=== PATIENT | female | born 1965 | race Caucasian/White ===

== ENCOUNTER 2025-01-19 08:13 | Outpatient (REF) | payer OTHER, SELFPAY ==
--- OUTSIDE RECORDS SUMMARY | 2025-01-19 09:10 | XMS_ITS | Encounter Summary ---
Author Organization [facility] Address [address] [facility] [address] [place] [address] Phone Care Team Providers Care Analytic Programmer Name Role Phone Dinorah Moses AUTOMAT CAR ATTENDANT Primary Care Prov ider Encounter Details Date Type Department Care Team (Late st Contact Info) Description 01/16/2024 Ancillary Orders [facility], Emergency - [facility] [address] [place] [address] Dinorah Moses, DARRIN [address] [place] [address] Pain (Primary Dx) Social History Tobacco Use Types Packs/Day Years Used Date Smoking Tobacco: Never Smokeless Tobacco: Never Alcohol Use Standard Drinks/Week Comments Yes 0 (1 standard drink = 0.6 oz pur e alcohol) 4-6 drinks a month Education Answer Date Recorded Are you interested in more education? Not on layla e 08/30/2022 Are you concerned about learning? Not on file 08/30/2022 No 08/30/2022 No 08/30/2022 Digital Access Answer Date Recorded No 09/25/2022 No 09/25/2022 Reliable internet access at home? Not on file 09/25/2022 Device with a working camera? Not on file Intimate Partner Violence Answer Date R ecorded Are you denied basic needs s uch as food, clothing, or medical care? No 09/02/2022 In the past 12 months have y ou been in a relationship with a person who hurts, threatens, or tries to control you? No 09/02/2022 Are you denied basic needs s uch as food, clothing, or medical care? No 09/02/2022 In the past 12 months have y ou been in a relationship with a person who hurts, threatens, or tries to control you? No 09/02/2022 Comments No Sex and Gender Information Value Date Recorded Sex Assigned at Female 01/26/2024 8:55 AM EDT Legal Sex Female 10:22 AM EDT Gender Identity Female 01/26/2024 8:55 AM EDT Sexual Orientation Not on file documented as of this encounter Plan of Treatment Scheduled Orders Name Type Priority Associated Diagnoses Orde r Schedule XR Foot (Right) Imaging Routine Pain 1 Occurrences starting 01/16/2024 until 04/16/2024 documented as of this encounter Visit Diagnoses Diagnosis Pain- Primary Generalized pain documented in this encounter Care Teams Analytic Programmer Relationship Specialty Start Date End Date Dinorah Moses CNP [address] [place] [address] PCP - General Nurse Practitioner 01/16/24 documented as of this encounter Additional Source Comments The information contained in this document represents components of the legal health record. It is not the complete legal health record.[facility]
--- OUTSIDE RECORDS SUMMARY | 2025-01-19 09:10 | XMS_ITS | Clinical Summary ---
Author Organization [facility] Address [address] [facility] [address] [place] [address] Phone Care Team Providers Care Fire Sprinkler Fitter Name Role Phone Dinorah Moses [facility] Primary Care Prov ider Allergies Active Allergy Reactions Criticality Noted Date Comments Amoxicillin Unknown Low 01/17/2022 Erythromycin Other (See Comments) Low 04/19/2022 Made her pink eye worse Medications Medication-Free Text Feel Good - topical cream, magnesium, arnica, etc Active cholecalciferol (VITAMIN D3) 25 MCG (1,000 unit) tablet Take 2 tablets by mouth. Active buPROPion (WELLBUTRIN XL) 150 MG ER 24 hr tablet TAKE 1 TABLET BY MOUTH IN THE MORNING FOR 7 DAYS, THEN INCREASE TO 2 TABLETS DAILY 3 Active multivitamin-Ca -iron-minerals Tab Take 1 tablet by mouth every morning. Active magnesium oxide 500 mg Tab Take 1 tablet by mouth every morning. Active calcium glucarate-diind olylmet 250-100 mg Cap Take by mouth. Activ e acetaminophen (TYLENOL) 325 mg tablet Take 3 tablets (975 mg total) by mouth every 8 (eight) hours. 0 3 Active aspirin 81 MG EC tablet Take 1 tablet (81 mg total) by mouth 2 (two) times a day for 30 doses. For 30 days following surgery. 30 tablet 3 Active magnesium gluconate (MAG-G) 500 mg (27 mg elemental) Tab Take 1 tablet by mouth. Active buPROPion (WELLBUTRIN XL) 150 MG ER 24 hr tablet Take 150 mg by mouth. Active Active Problems Problem Noted Date Diagnosed Date History of hip replacement, total, left 10/18/19 Aftercare following left hip joint replacement s urgery 09/02/2022 Posttraumatic stress disorder 01/17/2022 Resolved Problems Problem Noted Date Diagnosed Date Resolved Date Primary osteoarthritis of left hip 01/17/2022 10/17/2022 Social History Tobacco Use Types Packs/Day Years [...] AM EDT Sexual Orientation Not on file Last Filed Vital Signs Vital Sign Reading Time Taken Comments Blood Pressure 114/75 09/04/2022 12:35 AM EDT Pulse 82 09/04/2022 12:35 AM EDT Temperature 36.9 C (98.4 F) 09/04/2022 12:35 AM EDT Respiratory Rate 18 09/04/2022 12:35 AM EDT Oxygen Saturation 97% 09/04/2022 12:35 AM EDT Inhaled Oxygen Concentration - - Weight 84.4 kg (186 lb) 09/02/2022 12:00 PM EDT Height 162.6 cm (5' 4 ) 09/02/2022 12:00 PM EDT Body Mass Index 31.93 09/02/2022 12:00 PM EDT Plan of Treatment Health Maintenance Due Date Last Done Comments DEPRESSION SCREENING 1978 HEPATITIS C SCREENING 1984 HIV ONE-TIME SCREENING (18-65 YEARS) 1984 PAP SMEAR 11/07/1987 COLOGUARD 11/07/2011 COLONOSCOPY 11/07/2011 COLORECTAL CANCER SCREENING 11/07/2011 FIT TEST 11/07/2011 FOBT 11/07/2011 SIGMOIDOSCOPY 11/07/2011 VIRTUAL COLONOSCOPY 11/07/2011 PNEUMOCOCCAL VACCINES (50+ years) (1 of 1 - PCV) 2016 ZOSTER VACCINES (1 of 2) 2016 INFLUENZA VACCINE (#1) 2024 COVID-19 VACCINE ( season) 2025 05/11/2022, 09/18/2020, 08/21/2020 SCREENING FOR DIABETES 09/03/2025 09/03/2022, 2022 MAMMOGRAM 06/24/2026 06/24/2024, 0507/2018, 07/02/2017, Additional history exists LIPID PANEL 01/05/2028 01/04/2023 Adult Td,Tdap Booster 07/28/2031 07/27/2021, 010 SMOKING STATUS SCREENING (Once After 26 Yrs) Completed 06/24/2024 HEPATITIS A VACCINES Aged Out No long er eligible based on patient's age to complete this topic HIB VACCINES Aged Out No longer eligi ble based on patient's age to complete this topic MENINGOCOCCAL VACCINES (ACWY) Aged Out No longer eligible based on patient's age to complete this topic MENINGOCOCCAL VACCINES (B) Aged Out N o longer eligible based on patient's age to complete this topic Medical Devices Implanted Type Area Internal Grinder Set Up Operator Device Identifier Shelf Expiration Date Model / Serial / Lot Hip 36mm 0 G7 [place] Type 1 Standard - [id number] Implanted:Qty: 1 on 09/02/2022 by Juanito Anand MD at [facility] STANDARD Left: Hip [employer] 02/08/2032 [id number] / / [id number] Acetabular Shell 52mm Size E G7 Porous Plasma [place] [employer] Hole - [id number] Implanted:Qty: 1 on 09/02/2022 by Juanito Anand MD at [facility] Left: Hip [employer] 05/21/2032 [id number] / / [id number] Screw Bone 6.5x30mm Hip Dome G7 Acetabular Low Profile - [id number] Implanted:Qty: 1 on 09/02/2022 by Juanito Anand MD at [facility] Left: Hip [employer] 02/27/2033 [id number] / / [id number] Screw Hip 6.5x20mm G7 Low Profile Dome 16a - [id number] Implanted:Qty: 1 on 09/02/2022 by Juanito Anand MD at [facility] Left: Hip [employer] 05/15/2031 [id number] / / [id number] Hip Liner 36mm E Acetabular Neutral G7 Longevity - [id number] Implanted:Qty: 1 on 09/02/2022 by Juanito Anand MD at [facility] Left: Hip [employer] 06/30/2027 [id number] / / [id number] Hip Stem [id number] 135deg Echo Bi Metric Revision Titanium Porous Reduced Proximalimal Profile Neck - [id number] Implanted:Qty: 1 on 09/02/2022 by Jaunito Anand MD at [facility] Left: Hip [employer] 04/04/2028 [id number] / / [id number] Procedures Procedure Name Priority Date/Time Associated Diagnosis Comments BI MAMMOGRAM SCREENING WITH TOMOSYNTHESIS WITH CAD (BILATERAL) Routine 06/24/2024 7:54 AM EST Breast screening from Last 3 Months or Most Recently Relevant to Health Maintenance Results * BI MAMMOGRAM SCREENING WITH TOMOSYNTHESIS WITH CAD (BILATERAL) (06/24/2024 7:54 AM EST) Anatomical Region Laterality Modality Breast Left, Breast Right, Breast Bilateral Bila teral Mammography 06/24/2024 4:14 PM EST Impressions 06/24/2024 4:17 PM EST No mammographic evidence of malignancy in either breast. Annual screening mammography is recommended. BI-RADS 1 NEGATIVE The patient will be notified of the results and recommendations. Narrative 06/24/2024 4:17 PM EST BI MAMMOGRAM SCREENING WITH TOMOSYNTHESIS WITH CAD (BILATERAL) Additional patient information: Screening. COMPARISON: Comparison is made to relevant outside prior imaging. Breast composition: There are scattered areas of fibroglandular density. FINDINGS: No abnormal masses, suspicious calcifications, or other significant findings are identified mammographically in either breast. Procedure Note Kaitlyn Jones MD - 06/24/2024 BI MAMMOGRAM SCREENING WITH TOMOSYNTHESIS WITH CAD (BILATERAL) Additional patient information: Screening. COMPARISON: Comparison is made to relevant outside prior imaging. Breast composition: There are scattered areas of fibroglandular density. FINDINGS: No abnormal masses, suspicious calcifications, or other significantfindings are identified mammographically in either breast. IMPRESSION: No mammographic evidence of malignancy in either breast. Annual screening mammography is recommended. BI-RADS 1 NEGATIVE The patient will be notified of the results and recommendations. Dinorah Moses [facility] IMG MG EXAMS Fi nal Result from Last 3 Months or Most Recently Relevant to Health Maintenance Insurance [address] [place], [place] [address]O [facility] [place] [address] [place], [place] [address] [place] [address] [place] [address] [place] [address] O [facility] Advance Directives For more information, please contact: [phone] (9AM - 5PM [facility], Friday-Friday) * Full Code (Latest Code Status on File) Date Activated Date Inactivated Comments 09/02/2022 7:39 PM Question Answer Comments Code Status Confirmed With: Patient * Full Code Date Activated Date Inactivated Comments 09/02/2022 11:47 AM 09/02/2022 7:39 PM Question Answer Comments Code Status Confirmed With: Patient Care Teams Fire Sprinkler Fitter Relationship Specialty Start Date End Date Dinorah Moses CNP [address] [place] [address] PCP - General Nurse Practitioner 01/16/24 Additional Source Comments The information contained in this document represents components of the legal health record. It is not the complete legal health record.[facility]
--- OUTSIDE RECORDS SUMMARY | 2025-01-19 09:10 | XMS_ITS | Encounter Summary ---
Author Organization [facility] Address [address] [facility] [address] [place] [address] Phone Care Team Providers Care Assistant Sales Manager Name Role Phone Dinorah Moses CNP Primary Care Prov ider Encounter Details Date Type Department Care Team (Latest Contact Info) Description 01/16/2024 Transcribe Orders Virtual Department [address] [place] [address] Dinorah Moses CNP [address] [place] [address] Breast screening (Primary Dx) Social History Tobacco Use Types [...] as of this encounter Plan of Treatment Not on file documented as of this encounter Results * BI MAMMOGRAM SCREENING WITH TOMOSYNTHESIS [...] of the results and recommendations. Dinorah Moses CNP IMG MG EXAMS Fi nal Result documented in this encounter Visit Diagnoses Diagnosis Breast screening- Primary Breast screening, unspecified Breast screening Breast screening, unspecified documented in this encounter Care Teams Assistant Sales Manager Relationship Specialty Start Date End Date Dinorah Moses CNP [address] [place] [address] PCP - General Nurse Practitioner 01/16/24 documented as of this encounter Additional Source Comments The information contained in this document represents components of the legal health record. It is not the complete legal health record.[facility]
--- OUTSIDE RECORDS SUMMARY | 2025-01-19 09:10 | XMS_ITS | Patient Health Record ---
Author Organization [facility] Address [address] [place] [address] Care Team Providers Care Sheet Rock Installation Helper Name Role Phone Zayar DE LA TORRE MD, Brandon Primary Care Provider Charlotte nancy ONEALMAURO EDIN Unavailable [phone] Allergies Allergen (clinical drug ingredient) Drug/Non Drug Allergy documented on EMR Reaction Allergy Type Onset Date Status erythromycin Erythromycin Unknown Drug Allergy A ctive Reason For Referral No Information Medications Medication SIG (Take, Route, Fr equency, Duration) Notes Start Date End Date Status Meloxicam 7.5 MG 1 tablet Orally Once a day Active Social History Tobacco Use: Social History Observation Description Date Details (start date - stop date) Never Smoker NA - NA Tobacco Use/Smoking Question Answer Notes Current Smoking Status: nonsmoker Problems Problem Type SNOMED Code ICD Code Onset Dates Problem Status W/U Status Risk Notes Problem Contracture of right knee joint (disorder) (039881485822939) Contracture, right knee (M24.561) Active confirmed Problem Trochanteric bursitis of left hip (285891827079117) Trochanteric bursitis, left hip (M70.62) Active confirmed Problem Osteoarthritis of knee (790232080) Primary osteoarthritis of right knee (M17.11) Active confirmed Problem Pain of left hip joint (032241552520474) Pain of left hip joint (M25.552) Active confirmed Problem Localized, primary osteoarthritis of the pelvic region and thigh (131741667) Primary osteoarthritis of left hip (M16.12) Active confirmed Problem Pain of right hip joint (530458527966871) Pain of right hip joint (M25.551) Active confirmed Problem Carpal tunnel syndrome (84275221) Right carpal tunnel syndrome (G56.01) Active confirmed Problem Enthesopathy of hip region (50158539) Bursitis of hip, right (M70.71) Active confirmed Problem Tear of lateral meniscus of right knee, current, unspecified tear type, initial encounter (S83.281A) Active confirmed Problem Acute tear of lateral meniscus of right knee (disorder) (8849214533873450 0) Other tear of lateral meniscus of right knee as current injury, subsequent encounter (S83.281D) Active confirmed Plan Of Treatment No Information Insurance Providers Payer Name Payer Address Payer Phone Subscriber Number Group Number Insured Name Patient Relationship to Insured Coverage Start Date Coverage End Date [facility] [address] [place] [phone] [id number] Jazlyn Valdes Self - patient is the insured Medications Administered Medication Instructions Date of Administration Dosage Notes Dexamethasone 06/12/2017 4 mg Dexamethasone 01/22/2018 4 mg Medical (General) History Medical History History ICD Code Arthritis Surgical History Surgery Date(Month/Year)
--- OUTSIDE RECORDS SUMMARY | 2025-01-19 09:10 | XMS_ITS | Encounter Summary ---
Author Organization [employer] Address [address] [facility] [address] [place] [address] Care Team Providers Care Transportation Analyst Name Role Phone Tashia Durbin RD Unavailable [phone] Aga Cardoso MD Unavailable Dinorah Moses [facility] Primary Care Provider [phone] Aga Cardoso MD Primary Care Provider [phone] Encounter Details Date Type Department Care Team (Late st Contact Info) Description 09/29/2023 Orders Only [facility] MEDICAL [address] [place] [address] Provider, MD Davin Social History Tobacco Use Types Packs/Day Years Used Date Smoking Tobacco: Former Cigarettes Passive Smoke Exposure: Past Smokeless Tobacco: Never Comments:Smoked very briefly in college - socially. Never regular smoker. Alcohol Use Standard Drinks/Week Comments Yes 2 (1 standard drink = 0.6 oz pur e alcohol) 2 on the weekends Depression Answer Date Recorded Patient Health Questionnaire-9 Score 1 06/11/2023 Patient Health Questionnaire-9 Score 1 06/11/2023 Last PHQ-9: Questionnaire Data Not on file 0 06/11/2023 Housing Stability Answer Date Recorded What is your housing situation today? I have gino lynn 02/18/[address] you li ve. Do you have problems with any of the following? None of the above 02/18/2023 Food Insecurity Answer Date Recorded Within the past 12 months, y ou worried that your food would run out before you got money to buy more: Never True 02/18/2023 Within the past 12 months,th e food you bought just didn't last and you didn't have enough money to get more: Never True Transportation Answer Date Recorded In the past 12 months, has l ack of transportation kept you from medical appts, meetings, work or from getting things needed for daily living? No 02/18/2023 Utilities Answer Date Recorded In the past 12 months, has t he electric, gas, oil or water company threatened to shut off services in your home? 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 Not on file Not on file Not on layla e documented as of this encounter Plan of Treatment Upcoming Encounters Date Type Department Care Team (Late st Contact Info) Description 01/31/2025 9:20 AM EDT Telemedicine [facility] MEDICAL [address] [place] [address] Aga Cardoso MD [address] [place] [address] 03/14/2025 9:00 AM EST Telemedicine [facility] NUTRITION [address] [place] [address] Tashia Durbin, RD [address] [place] [address] 03/23/2025 9:00 AM EST Office Visit [facility] OPTOMETRY [address] [place] [address] Ladonna Holm, OD [address] [place] [address] documented as of this encounter Procedures Procedure Name Priority Date/Time Associated Diagnosis Comments ECG 12-LEAD Routine 09/19/2023 8:47 AM EDT documented in this encounter Results * ECG 12 lead (09/19/2023 8:47 AM EDT) us Historical Provider ECG ORDERABLES Final Res ult documented in this encounter Visit Diagnoses Not on filedocumented in this encounter Additional Health Concerns Assessment Noted Time PHQ-9 Depression Total Score: 1 06/11/19 24 12:07 PM EST documented as of this encounter Care Teams Transportation Analyst Relationship Specialty Start Date End Date Dharmeshmanuelxin DinorahJOHANN [address] [place] [address] PCP - General Family Medicine 09/19/23 02/24/24 Aga Cardsoo MD [address] [place] [address] PCP - General Internal Medicine 02/25/[address] [place] [address] Dietitian Dietitian 05/10/22 Aga Cardoso MD [address] [place] [address] Referring Physician Internal Medicine 06/30/23 documented as of this encounter
--- OUTSIDE RECORDS SUMMARY | 2025-01-19 09:10 | XMS_ITS | Encounter Summary ---
Author Organization [facility] Address [address] [facility] [address] [place] [address] Phone Care Team Providers Care Billboard Mechanic Name Role Phone Dinorah Moses MANNEQUIN MOLDER Primary Care Prov ider Encounter Details Date Type Department Care Team (Late st Contact Info) Description 01/16/2024 Ancillary Orders [facility], Emergency - [facility] [address] [place] [address] Dinorah Moses, DARRIN [address] [place] [address] Pain (Primary Dx) Social History Tobacco Use [...] documented as of this encounter Results * XR FOOT 3 OR MORE VIEWS (RIGHT) (01/16/2024 7:36 PM EDT) Anatomical Region Laterality Modality Foot Right Computed Radiogr aphy 01/19/2024 1:12 PM EDT Impressions 01/19/2024 1:13 PM EDT No acute osseous abnormality. Mild degenerative changes. Narrative 01/19/2024 1:13 PM EDT XR FOOT 3 OR MORE VIEWS (RIGHT) Referring clinician's provided indication for this examination in Epic: Pain; pain COMPARISON: None FINDINGS: No acute fracture or dislocation. Mild scattered degenerative changes throughout the foot. Bulky plantar calcaneal enthesophyte with chronic calcification of the proximal plantar fascia. No soft tissue swelling. Procedure Note Alberto Tucker MD - 01/19/2024 XR FOOT 3 OR MORE VIEWS (RIGHT) Referring clinician's provided indication for this examination in Epic:Pain; pain COMPARISON: None FINDINGS: No acute fracture or dislocation. Mild scattered degenerative changesthroughout the foot. Bulky plantar calcaneal enthesophyte with chroniccalcification of the proximal plantar fascia. No soft tissue swelling. IMPRESSION: No acute osseous abnormality. Mild degenerative changes. Dinorah Moses MANNEQUIN MOLDER IMG XR LOWER EXTRE MITY Final Result documented in this encounter Visit Diagnoses Diagnosis Pain- Primary Generalized pain Pain Generalized pain documented in this encounter Care Teams Billboard Mechanic Relationship Specialty Start Date End Date Dinorah Moses CNP [address] [place] [address] PCP - General Nurse Practitioner 01/16/24 documented as of this encounter Additional Source Comments The information contained in this document represents components of the legal health record. It is not the complete legal health record.[facility]
--- OUTSIDE RECORDS SUMMARY | 2025-01-19 09:10 | XMS_ITS | Encounter Summary ---
Author Organization [facility] Address [address] [facility] [address] [place] [address] Phone Care Team Providers Care Underground Truck Operator Name Role Phone Fabienne Miles Keon PYROMETER MECHANIC Primary Care Provider [phone] Dinorah Moses CNP Primary Care Prov ider Encounter Details Date Type Department Care Team (Latest Contact Info) Description 12/24/2023 Transcribe Orders Virtual Department [address] [place] [address] Dinorah Moses, DONOR SUPPORT TECHNICIAN [address] [place] [address] Left hand pain (Primary Dx) Social History Tobacco Use Types [...] as of this encounter Results * XR HAND 3 OR MORE VIEWS (LEFT) (12/25/2023 8:32 AM EDT) Anatomical Region Laterality Modality Hand Left Computed Radiogr aphy 12/25/2023 10:0 0 AM EDT Impressions 12/25/2023 10:02 AM EDT FINDINGS/IMPRESSION: There is no evidence of acute fracture, subluxation, or dislocation. There is minimal degenerative change of the thumb carpometacarpal joint. There are no acute soft tissue abnormalities. Narrative 12/25/2023 10:02 AM EDT XR HAND 3 OR MORE VIEWS (LEFT) 12/25/2023 8:20 AM Referring clinician's provided indication for this examination in [facility]: Outside Radiology Order; left hand pain COMPARISON: None Procedure Note Patricia Scott MD - 12/25/2023 XR HAND 3 OR MORE VIEWS (LEFT) 12/25/2023 8:20 AM Referring clinician's provided indication for this examination in Epic:Outside Radiology Order; left hand pain COMPARISON: None IMPRESSION: FINDINGS/IMPRESSION: There is no evidence of acute fracture, subluxation, or dislocation. Thereis minimal degenerative change of the thumb carpometacarpal joint. Thereare no acute soft tissue abnormalities. us Dinorah Moses DONOR SUPPORT TECHNICIAN IMG XR UPPER EXTRE MITY Final Result documented in this encounter Visit Diagnoses Diagnosis Left hand pain- Primary Pain in soft tissues of limb Left hand pain Pain in soft tissues of limb documented in this encounter Care Teams Underground Truck Operator Relationship Specialty Start Date End Date Fabienne Miles FNP PCP - General Nurse Practitioner 03/14/23 01/15/24 Dinorah Moses CNP [address] [place] [address] PCP - General Nurse Practitioner 01/16/24 documented as of this encounter Additional Source Comments The information contained in this document represents components of the legal health record. It is not the complete legal health record.[facility]
--- OUTSIDE RECORDS SUMMARY | 2025-01-19 09:11 | XMS_ITS | Encounter Summary ---
Author Organization [facility] Address [address] [facility] [address] [place] [id number] Phone Care Team Providers Care Medical Coding Specialist Name Role Phone Carmen Greenwood PROFESSIONAL ENGINEER Primary Care Provide r Fabienne Miles WEB DEVELOPMENT INSTRUCTOR Primary Care Provider [phone] Dinorah Moses INSTALLATION DRAFTER Primary Care Prov ider Encounter Details Date Type Department Care Team (Late st Contact Info) Description 09/02/2022 Procedure Pass OR Admitting Dept - Virtual Department [address] [place] [address] Social History Tobacco Use Types Packs/Day Years Used Date Smoking Tobacco: Never Smokeless Tobacco: Never Alcohol Use Standard Drinks/Week Comments Yes 0 (1 standard drink = 0.6 oz pur e alcohol) 4-6 drinks a month Education Answer Date Recorded Are you interested in more education? Not on layla e 08/30/2022 Are you concerned about learning? Not on file 08/30/2022 No 08/30/2022 No 08/30/2022 Intimate Partner Violence Answer Date R ecorded [...] on file documented as of this encounter Functional Status * Calculated C-SSRS Risk Score (Lifetime/Recent) Answer Date of Assessment Author No Risk Indicated 09/02/2022 11:35 PM EDT Martha Singh RN * [place] Suicide Severity Rating Scale (Screener/Recent Self-Report) Question Answer Date of Assessment Author 1. Wish to be (Past 1 Month) No 023 11:35 PM EDT Martha Singh RN 2. Non-Specific Active Suici chitra Thoughts (Past 1 Month) No 09/02/2022 11:35 PM EDT Martha Singh RN 6. Suicidal Behavior (Lifetime) No 11:35 PM EDT Martha Singh RN documented as of this encounter Plan of Treatment Not on file documented as of this encounter Visit Diagnoses Not on filedocumented in this encounter Care Teams Medical Coding Specialist Relationship Specialty Start Date End Date Carmen Greenwood NP PCP - General Family Medicine 11/29/21 03/13/23 Fabienne Miles FNP PCP - General Nurse Practitioner 03/14/23 01/15/24 Dinorah Moses CNP [address] [place] [address] PCP - General Nurse Practitioner 01/16/24 documented as of this encounter Additional Source Comments The information contained in this document represents components of the legal health record. It is not the complete legal health record.[facility]
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
--- OUTSIDE RECORDS SUMMARY | 2025-01-19 09:11 | XMS_ITS | Encounter Summary ---
Author Organization [facility] Address [address] [facility] [address] [place] [phone] Phone Care Team Providers Care Cattle Farmer Name Role Phone KlarissaDinorah zamudio [facility] Primary Care Prov ider Encounter Details Date Type Department Care Team (Late st Contact Info) Description 01/22/2024 Procedure Pass [facility], [address] [address] Social History Tobacco Use Types Packs/Day Years [...] on filedocumented in this encounter Care Teams Cattle Farmer Relationship Specialty Start Date End Date Dinorah Moses CNP [address] [place] [address] PCP - General Nurse Practitioner 01/16/24 documented as of this encounter Additional Source Comments The information contained in this document represents components of the legal health record. It is not the complete legal health record.[facility]
== END 2025-01-19 08:14 | disposition home or self-care (01) ==
LOC: HO.SH 08:13
PROVIDERS: Visit Provider Internal Medicine
DX: Z01.118 Encounter for examination of ears and hearing with other abnormal findings (principal); H93.293 Other abnormal auditory perceptions, bilateral
CPT/HCPCS: 92557; 92567